=== PATIENT | female | born 1935 | race Caucasian/White ===

== ENCOUNTER 2020-08-30 06:28 | Observation (INO) | payer MEDICARE ==
[2020-08-25 11:54] LABS: BASOPHILS # (AUTO) 0.1 (0.0-0.1); BASOPHILS % 1.4 % (0.0-1.0); EOSINOPHILS # (AUTO) 0.1 (0.0-0.4); EOSINOPHILS % 1.1 % (0.0-6.0); HEMATOCRIT 33.4 % (34.2-44.1); HEMOGLOBIN 9.3 g/dL (12.0-16.0); LYMPHOCYTES # (AUTO) 2.3 (1.0-3.2); LYMPHOCYTES % 25.4 % (18.0-39.1); MEAN CORPUSCULAR HGB CONC 27.8 g/dL (31-35); MEAN CORPUSCULAR VOLUME 79.1 fL (81-99); MONOCYTES # (AUTO) 0.9 (0.2-0.8); NEUTROPHILS # (AUTO) 5.7 (2.1-6.9); NEUTROPHILS % 61.9 % (38.7-80.0); PLATELET COUNT 561 x10e3/uL (140-360); RED BLOOD COUNT 4.22 x10e6/uL (3.6-5.1); RED CELL DISTRIBUTION WIDTH 18.4 % (11.7-14.4)
[2020-08-25 12:21] LABS: ANION GAP 14.6 mmol/L (8-16); BLOOD UREA NITROGEN 17 mg/dL (7-26); BUN/CREATININE RATIO 24 (6-25); CALCIUM 9.4 mg/dL (8.4-10.2); CARBON DIOXIDE 27 mmol/L (22-29); CHLORIDE 103 mmol/L (98-107); CREATININE, SERUM 0.71 mg/dL (0.57-1.11); EST GLOMERULAR FILTRATION RATE > 60 ML/MIN (60-); GLUCOSE 108 mg/dL (74-118); POTASSIUM 3.6 mmol/L (3.5-5.1); SODIUM 141 mmol/L (136-145)
[~2020-08-30] VITALS: Ht 152.4 cm; Wt 65.3 kg
[~2020-08-30 06:28] MED LIST: ASPIRIN81 MG PO; ATORVASTATIN CA20 MG PO; LASIX40 MG PO; POTASSIUM CHLO10 ME1 PO; ULTRAM50 MG PO; VOLTAREN-XR100 MG PO
[2020-08-30] MEDS ORDERED: BUPIVACAINE 7.5MG/ML /DEXTROSE 82.5MG/ML 2 ML AMP INJ ONE (06:45)
[2020-08-30] MEDS ORDERED: SODIUM CHLORIDE 0.9% 500ML 500 ML ONE (06:52)
[2020-08-30] MEDS ORDERED: VANCOMYCIN HCL 1,000 MG ONE (06:53)
[2020-08-30] MEDS ORDERED: TRANEXAMIC ACID 1,000 MG/10 ML ML ONE (06:53)
[2020-08-30] MEDS ORDERED: GABAPENTIN 300 MG CAP ONE (07:28)
[2020-08-30] MEDS ORDERED: CELECOXIB 200 MG CAP ONE (07:28)
[2020-08-30] MEDS ORDERED: DEXAMETHASONE SOD PHOS 10 MG/1 ML VIAL ONE (07:28)
[2020-08-30] MEDS ORDERED: CEFAZOLIN SOD 1 GM/NS 50ML 100 ML IV ONE (07:28)
[2020-08-30] MEDS ORDERED: ROPIVACAINE 246.25 MG, EPINEPHRINE HCL 1:1000 1ML 0.5 MG, CLONIDINE HCL 0.08 MG, KETORO... INJ ONE ×5 (08:00)
[2020-08-30] MEDS ORDERED: HYDROCODONE/APAP 7.5MG-325MG 1 EA TAB PO PRN (09:30)
[2020-08-30] MEDS ORDERED: DOCUSATE SODIUM 100 MG CAP PO PRN (09:30)
[2020-08-30] MEDS ORDERED: ACETAMINOPHEN 650 MG SUPP PR PRN (09:30)
[2020-08-30] MEDS ORDERED: ONDANSETRON HCL INJ 2MG/ML 2ML 2 MG/ML VIAL IV PRN (09:30)
[2020-08-30] MEDS ORDERED: KETOROLAC TROMETHAMINE 30 MG/ML VIAL IV PRN (09:30)
[2020-08-30] MEDS ORDERED: DIPHENHYDRAMINE HCL INJ 50 MG/ML VIAL IV PRN (09:30)
[2020-08-30] MEDS ORDERED: SODIUM CHLORIDE 0.9% 1000ML 1,000 ML IV SCH (09:30)
[2020-08-30 10:52] VITALS: BP 143/53
[2020-08-30 10:59] VITALS: BP 143/53
[2020-08-30] MEDS ORDERED: ACETAMINOPHEN 1000 MG/100 ML IV PRN (12:00)
[2020-08-30] MEDS ORDERED: MIDAZOLAM HCL 2 MG/2 ML VIAL ONE (12:31)
[2020-08-30] MEDS ORDERED: FENTANYL CITRATE/PF 100MCG/2 ML INJ ONE (12:31)
[2020-08-30] MEDS ORDERED: PROPOFOL IV EMULSION 10 MG/ML 20 ML VIAL ONE (13:02)
[2020-08-30] MEDS ORDERED: LIDOCAINE HCL 2% LOCAL INJ 5 ML SDV VIAL INJ ONE (13:02)
[2020-08-30] MEDS: CEFAZOLIN SOD 1 GM/NS 50ML 50 ML IV SCH ×2 (14:00→21:00)
[2020-08-30 15:38] VITALS: BP 129/50
[2020-08-30] MEDS: HYDROCODONE/APAP 5MG-325MG TAB PO PRN (15:59)
[2020-08-30] MEDS ORDERED: DICLOFENAC SOD 50 MG TAB PO SCH (17:00)
[2020-08-30] MEDS: ASPIRIN 325 MG TAB PO SCH (17:03)
[2020-08-30] MEDS: CELECOXIB 200 MG CAP PO SCH (17:03)
[2020-08-30] MEDS: FUROSEMIDE 40 MG TAB PO SCH (17:03)
[2020-08-30 20:00] VITALS: BP 119/51
[2020-08-30] MEDS: TRAMADOL HCL 50 MG TAB PO SCH (21:00)
[2020-08-30] MEDS: ATORVASTATIN 20 MG TAB PO SCH (21:00)
[2020-08-30] MEDS: ZOLPIDEM TARTRATE 5 MG TAB PO PRN (23:49)
[2020-08-31] VITALS (8 sets, daily range): BP systolic 115–155; BP diastolic 49–100
[2020-08-31 05:28] LABS: HEMATOCRIT 27.1 % (34.2-44.1); HEMOGLOBIN 7.7 g/dL (12.0-16.0)
[2020-08-31] MEDS: CEFAZOLIN SOD 1 GM/NS 50ML 50 ML IV SCH (06:02)
[2020-08-31] MEDS: ASPIRIN 325 MG TAB PO SCH ×2 (07:58→17:36)
[2020-08-31] MEDS: CELECOXIB 200 MG CAP PO SCH ×2 (07:58→17:36)
[2020-08-31] MEDS: FUROSEMIDE 40 MG TAB PO SCH ×2 (08:01→17:36)
[2020-08-31] MEDS: POTASSIUM CHLORIDE 10MEQ EA PO SCH (08:01)
[2020-08-31] MEDS: IRON-VITAMIN-MINERAL CAPSULE PO SCH ×2 (09:23→17:36)
[2020-08-31] MEDS: HYDROCODONE/APAP 5MG-325MG TAB PO PRN (12:15)
[2020-08-31] MEDS ORDERED: ONDANSETRON HCL 4 MG ORAL DISINTEGRATING TAB PO PRN (14:00)
[2020-08-31] MEDS: ATORVASTATIN 20 MG TAB PO SCH (20:53)
[2020-08-31] MEDS: ZOLPIDEM TARTRATE 5 MG TAB PO PRN (20:55)
[2020-08-31] MEDS: TRAMADOL HCL 50 MG TAB PO SCH (20:55)
[2020-09-01] VITALS: BP 152/60
[2020-09-01] MEDS ORDERED: QUETIAPINE FUMARATE 25 MG TAB PO PRN ×2 (00:30→08:30)
[2020-09-01 04:00] VITALS: BP 144/42
[2020-09-01] MEDS ORDERED: KETOROLAC TROMETHAMINE 30 MG/ML VIAL IM PRN (04:15)
[2020-09-01] MEDS ORDERED: DIPHENHYDRAMINE HCL INJ 50 MG/ML VIAL IV PRN (04:15)
[2020-09-01] MEDS ORDERED: DIPHENHYDRAMINE HCL INJ 50 MG/ML VIAL ONE (04:19)
[2020-09-01 05:44] LABS: BASOPHILS # (AUTO) 0.1 (0.0-0.1); BASOPHILS % 0.7 % (0.0-1.0); EOSINOPHILS # (AUTO) 0.2 (0.0-0.4); EOSINOPHILS % 1.7 % (0.0-6.0); HEMATOCRIT 28.6 % (34.2-44.1); HEMOGLOBIN 8.3 g/dL (12.0-16.0); LYMPHOCYTES # (AUTO) 2.6 (1.0-3.2); LYMPHOCYTES % 21.4 % (18.0-39.1); MEAN CORPUSCULAR HEMOGLOBIN 22.6 pg (28-32); MEAN CORPUSCULAR VOLUME 77.7 fL (81-99); MONOCYTES % 8.3 % (4.4-11.3); NEUTROPHILS # (AUTO) 8.1 (2.1-6.9); NEUTROPHILS % 67.5 % (38.7-80.0); PLATELET COUNT 416 x10e3/uL (140-360); RED BLOOD COUNT 3.68 x10e6/uL (3.6-5.1); RED CELL DISTRIBUTION WIDTH 18.6 % (11.7-14.4)
[2020-09-01 06:14] LABS: ANION GAP 13.4 mmol/L (8-16); BLOOD UREA NITROGEN 26 mg/dL (7-26); BUN/CREATININE RATIO 38 (6-25); CALCIUM 8.5 mg/dL (8.4-10.2); CARBON DIOXIDE 27 mmol/L (22-29); CHLORIDE 104 mmol/L (98-107); CREATININE, SERUM 0.68 mg/dL (0.57-1.11); EST GLOMERULAR FILTRATION RATE > 60 ML/MIN (60-); GLUCOSE 101 mg/dL (74-118); POTASSIUM 3.4 mmol/L (3.5-5.1); SODIUM 141 mmol/L (136-145)
[2020-09-01 08:00] VITALS: BP 152/58
[2020-09-01] MEDS: CELECOXIB 200 MG CAP PO SCH (08:48)
[2020-09-01] MEDS: IRON-VITAMIN-MINERAL CAPSULE PO SCH (08:48)
[2020-09-01] MEDS: ASPIRIN 325 MG TAB PO SCH (08:48)
[2020-09-01] MEDS: POTASSIUM CHLORIDE 10MEQ EA PO SCH (08:49)
[2020-09-01] MEDS: FUROSEMIDE 40 MG TAB PO SCH (08:49)
[2020-09-01 08:56] VITALS: BP 152/58
[2020-09-01] MEDS ORDERED: POTASSIUM CHLORIDE 10MEQ EA PO ONE (09:00)
[2020-09-01] MEDS: HYDROCODONE/APAP 5MG-325MG TAB PO PRN (10:32)
[2020-09-01 10:51] VITALS: BP 152/58
[2020-09-01 11:38] VITALS: BP 152/65
[2020-09-02] MEDS ORDERED: POTASSIUM CHLORIDE 10MEQ EA PO SCH (09:00)
== END 2020-09-01 13:20 | disposition home health service (06) ==
LOC: OR 06:28 → PACU V 09:24 → MED/SURG 10:25
PROVIDERS: ADMIT Specialist; ATTEND Specialist
DX: M16.12 Unilateral primary osteoarthritis, left hip (principal); E11.9 Type 2 diabetes mellitus without complications; E78.00 Pure hypercholesterolemia, unspecified; Z96.641 Presence of right artificial hip joint; Z01.812 Encounter for preprocedural laboratory examination; Z20.822 Contact with and (suspected) exposure to COVID-19; D64.9 Anemia, unspecified; I10 Essential (primary) hypertension
CPT/HCPCS: 27130; 36415 ×3; 71046; 72170; 80048 ×2; 85014; 85018; 85025 ×2; 86850; 86900; 86920; 93005; 97110; 97116 ×3; 97161; 97530 ×2; G0378 ×3; J0171; J0690 ×2; J1100; J1200; J1885 ×2; J2001; J2250; J2704; J2795; J3010; J3370; J7040; U0002; C1713; C1776

== ENCOUNTER 2020-09-29 10:49 | Inpatient (IN) | payer MEDICARE, OTHER ==
[2020-09-26 17:24] LABS: BASOPHILS # (AUTO) 0.1 (0.0-0.1); BASOPHILS % 0.9 % (0.0-1.0); EOSINOPHILS # (AUTO) 0.2 (0.0-0.4); EOSINOPHILS % 1.3 % (0.0-6.0); HEMATOCRIT 31.9 % (34.2-44.1); HEMOGLOBIN 9.4 g/dL (12.0-16.0); LYMPHOCYTES # (AUTO) 2.2 (1.0-3.2); MEAN CORPUSCULAR HEMOGLOBIN 24.1 pg (28-32); MEAN CORPUSCULAR HGB CONC 29.5 g/dL (31-35); MEAN CORPUSCULAR VOLUME 81.8 fL (81-99); MONOCYTES # (AUTO) 1.1 (0.2-0.8); MONOCYTES % 9.3 % (4.4-11.3); NEUTROPHILS # (AUTO) 8.1 (2.1-6.9); NEUTROPHILS % 68.9 % (38.7-80.0); PLATELET COUNT 738 x10e3/uL (140-360); RED CELL DISTRIBUTION WIDTH 23.3 % (11.7-14.4)
[2020-09-26 17:43] LABS: ANION GAP 16.5 mmol/L (8-16); BLOOD UREA NITROGEN 23 mg/dL (7-26); BUN/CREATININE RATIO 40 (6-25); CALCIUM 9.2 mg/dL (8.4-10.2); CARBON DIOXIDE 23 mmol/L (22-29); CHLORIDE 105 mmol/L (98-107); CREATININE, SERUM 0.58 mg/dL (0.57-1.11); EST GLOMERULAR FILTRATION RATE > 60 ML/MIN (60-); GLUCOSE 122 mg/dL (74-118); POTASSIUM 4.5 mmol/L (3.5-5.1); SODIUM 140 mmol/L (136-145)
[2020-09-26 19:05] LABS: ANISOCYTOSIS SLIGHT; HYPOCHROMASIA SLIGHT; POIKILOCYTOSIS SLIGHT; TARGET CELLS FEW
[2020-09-26 19:07] LABS: PLATELET ESTIMATE MARKEDLY INCREASED
[2020-09-26 19:08] LABS: PLATELET MORPHOLOGY COMMENT FEW LARGE; SCHISTOCYTES RARE
[~2020-09-29] VITALS: Ht 154.9 cm; Wt 61.7 kg
[2020-09-29] VITALS (7 sets, daily range): BP systolic 119–151; BP diastolic 57–68
[~2020-09-29 10:49] MED LIST changes: +CALCIUM CARBON500 MG PO; +CLARITIN10 MG PO; +HEMOCYTE PLUS1 EACH PO; +MYRBETRIQ25 MG PO; +NEURONTIN300 MG PO; +PRAVACHOL20 MG PO; +ROPIVACAINE 246.25 MG, EPINEPHRINE HCL 1:1000 1ML 0.5 MG, CLONIDINE HCL 0.08 MG, KETORO... INJ ONE; +TYLENOL EXTRA500 MG PO; +VITAMIN D3250 MCG PO
[2020-09-29] MEDS ORDERED: TRANEXAMIC ACID 1,000 MG/10 ML ML ONE (10:56)
[2020-09-29] MEDS ORDERED: VANCOMYCIN HCL 1,000 MG ONE (10:56)
[2020-09-29] MEDS ORDERED: SODIUM CHLORIDE 0.9% 500ML 500 ML ONE (10:56)
[2020-09-29] MEDS ORDERED: CEFAZOLIN SOD 1 GM/NS 50ML 100 ML IV ONE (11:07)
[2020-09-29] MEDS ORDERED: VANCOMYCIN 1GM/NS 250 ML 250 ML ONE (11:07)
[2020-09-29] MEDS ORDERED: GLYCOPYRROLATE INJ 0.2 MG/ML VIAL ONE (12:03)
[2020-09-29] MEDS ORDERED: NEOSTIGMINE 1 MG/ML 10ML VIAL ONE (12:03)
[2020-09-29] MEDS ORDERED: PROPOFOL IV EMULSION 10 MG/ML 20 ML VIAL ONE (12:03)
[2020-09-29] MEDS ORDERED: ONDANSETRON HCL INJ 2MG/ML 2ML 2 MG/ML VIAL ONE (12:03)
[2020-09-29] MEDS ORDERED: POVIDONE IODINE 0.05% 0.05 % ML PO ONE (12:03)
[2020-09-29] MEDS ORDERED: ROCURONIUM BROMIDE 10 MG/ML 5ML VIAL IV ONE (12:03)
[2020-09-29] MEDS ORDERED: LIDOCAINE HCL 2% LOCAL INJ 5 ML SDV VIAL INJ ONE (12:03)
[2020-09-29] MEDS ORDERED: LIDOCAINE HCL 2% JELLY 5 ML TUBE ONE (12:03)
[2020-09-29] MEDS ORDERED: SEVOFLURANE INHAL SOLN 250 ML PEN BTL ONE (12:03)
[2020-09-29] MEDS ORDERED: HYDROGEN PEROXIDE 120 ML BTL ONE (12:11)
[2020-09-29] MEDS ORDERED: FENTANYL CITRATE/PF 100MCG/2 ML INJ ONE ×2 (12:56→14:51)
[2020-09-29] MEDS ORDERED: KETOROLAC TROMETHAMINE 30 MG/ML VIAL IV PRN (14:15)
[2020-09-29] MEDS ORDERED: HYDROCODONE/APAP 5MG-325MG TAB PO PRN (14:15)
[2020-09-29] MEDS ORDERED: DOCUSATE SODIUM 100 MG CAP PO PRN (14:15)
[2020-09-29] MEDS ORDERED: HYDROCODONE/APAP 7.5MG-325MG 1 EA TAB PO PRN (14:15)
[2020-09-29] MEDS ORDERED: ONDANSETRON HCL INJ 2MG/ML 2ML 2 MG/ML VIAL IV PRN (14:15)
[2020-09-29] MEDS ORDERED: ACETAMINOPHEN 650 MG SUPP PR PRN (14:15)
[2020-09-29] MEDS ORDERED: DIPHENHYDRAMINE HCL INJ 50 MG/ML VIAL IV PRN (14:15)
[2020-09-29] MEDS ORDERED: HYDROMORPHONE 1MG/1ML INJ ONE (15:05)
[2020-09-29] MEDS ORDERED: MORPHINE SULFATE INJ 4 MG/ML INJ 1ML ONE (15:31)
[2020-09-29] MEDS: SODIUM CHLORIDE 0.9% 1000ML 1,000 ML IV SCH (16:39)
[2020-09-29] MEDS: ASPIRIN 325 MG TAB PO SCH (16:49)
[2020-09-29] MEDS: CELECOXIB 100 MG CAP PO SCH (16:49)
[2020-09-29] MEDS ORDERED: ACETAMINOPHEN 1000 MG/100 ML IV PRN (17:00)
[2020-09-29] MEDS: CEFEPIME 2 GM/NS 0.9% 100 ML 100 ML IV SCH (19:57)
[2020-09-29] MEDS: ZOLPIDEM TARTRATE 5 MG TAB PO PRN (21:53)
[2020-09-30] VITALS (10 sets, daily range): BP systolic 129–156; BP diastolic 50–98
[2020-09-30] MEDS: VANCOMYCIN 1GM/NS 250 ML 250 ML IV SCH ×2 (00:29→12:46)
[2020-09-30] MEDS: TRAMADOL HCL 50 MG TAB PO PRN ×2 (01:45→22:23)
[2020-09-30] MEDS: SODIUM CHLORIDE 0.9% 1000ML 1,000 ML IV SCH (03:37)
[2020-09-30 05:11] LABS: BASOPHILS # (AUTO) 0.1 (0.0-0.1); BASOPHILS % 0.5 % (0.0-1.0); EOSINOPHILS # (AUTO) 0.1 (0.0-0.4); EOSINOPHILS % 0.7 % (0.0-6.0); LYMPHOCYTES # (AUTO) 2.3 (1.0-3.2); LYMPHOCYTES % 19.7 % (18.0-39.1); MEAN CORPUSCULAR HEMOGLOBIN 23.2 pg (28-32); MEAN CORPUSCULAR HGB CONC 28.1 g/dL (31-35); MEAN CORPUSCULAR VOLUME 82.5 fL (81-99); MONOCYTES # (AUTO) 0.8 (0.2-0.8); MONOCYTES % 7.2 % (4.4-11.3); NEUTROPHILS # (AUTO) 8.2 (2.1-6.9); NEUTROPHILS % 70.5 % (38.7-80.0); PLATELET COUNT 657 x10e3/uL (140-360); RED BLOOD COUNT 2.63 x10e6/uL (3.6-5.1); RED CELL DISTRIBUTION WIDTH 22.8 % (11.7-14.4)
[2020-09-30 05:14] LABS: HEMATOCRIT 21.7 % (34.2-44.1); HEMOGLOBIN 6.1 g/dL (12.0-16.0)
[2020-09-30 05:58] LABS: HEMATOCRIT 22.9 % (34.2-44.1)
[2020-09-30 05:59] LABS: HEMOGLOBIN 6.7 g/dL (12.0-16.0)
[2020-09-30] MEDS: CEFEPIME 2 GM/NS 0.9% 100 ML 100 ML IV SCH ×2 (06:01→17:25)
[2020-09-30] MEDS ORDERED: FUROSEMIDE INJ 10 MG/ML 2 ML VIAL IV PRN (06:15)
[2020-09-30] MEDS ORDERED: SODIUM CHLORIDE 0.9% 250ML 250 ML IV ONE (06:15)
[2020-09-30] MEDS ORDERED: SODIUM CHLORIDE 0.9% 250ML 250 ML ONE (07:25)
[2020-09-30] MEDS: ASPIRIN 325 MG TAB PO SCH ×2 (07:56→17:25)
[2020-09-30] MEDS: CELECOXIB 100 MG CAP PO SCH ×2 (07:56→17:25)
[2020-09-30 08:39] LABS: HYPOCHROMASIA MODERATE; MICROCYTOSIS MODERATE; PLATELET ESTIMATE SLIGHTLY INCREASED; PLATELET MORPHOLOGY COMMENT NORMAL; POLYCHROMASIA FEW; RBC MORPHOLOGY COMMENT ABNORMAL
[2020-09-30 08:40] LABS: ANISOCYTOSIS MODERATE
[2020-09-30] MEDS: KETOROLAC TROMETHAMINE 30 MG/ML VIAL IV PRN ×2 (15:10→23:52)
[2020-09-30] MEDS: ZOLPIDEM TARTRATE 5 MG TAB PO PRN (20:15)
[2020-10-01] VITALS (8 sets, daily range): BP systolic 137–167; BP diastolic 54–69
[2020-10-01] MEDS: CEFEPIME 2 GM/NS 0.9% 100 ML 100 ML IV SCH (05:43)
[2020-10-01 05:47] LABS: BASOPHILS # (AUTO) 0.1 (0.0-0.1); BASOPHILS % 0.6 % (0.0-1.0); EOSINOPHILS # (AUTO) 0.2 (0.0-0.4); HEMATOCRIT 28.9 % (34.2-44.1); LYMPHOCYTES # (AUTO) 1.9 (1.0-3.2); LYMPHOCYTES % 16.2 % (18.0-39.1); MEAN CORPUSCULAR HEMOGLOBIN 25.8 pg (28-32); MEAN CORPUSCULAR HGB CONC 31.1 g/dL (31-35); MEAN CORPUSCULAR VOLUME 82.8 fL (81-99); MONOCYTES # (AUTO) 0.9 (0.2-0.8); MONOCYTES % 7.7 % (4.4-11.3); NEUTROPHILS # (AUTO) 8.5 (2.1-6.9); NEUTROPHILS % 72.3 % (38.7-80.0); PLATELET COUNT 551 x10e3/uL (140-360); RED BLOOD COUNT 3.49 x10e6/uL (3.6-5.1); RED CELL DISTRIBUTION WIDTH 20.3 % (11.7-14.4)
[2020-10-01 06:17] LABS: ANION GAP 10.8 mmol/L (8-16); BLOOD UREA NITROGEN 11 mg/dL (7-26); BUN/CREATININE RATIO 21 (6-25); CALCIUM 8.1 mg/dL (8.4-10.2); CARBON DIOXIDE 22 mmol/L (22-29); CHLORIDE 112 mmol/L (98-107); CREATININE, SERUM 0.52 mg/dL (0.57-1.11); EST GLOMERULAR FILTRATION RATE > 60 ML/MIN (60-); GLUCOSE 93 mg/dL (74-118); POTASSIUM 3.8 mmol/L (3.5-5.1); SODIUM 141 mmol/L (136-145)
[2020-10-01] MEDS: ASPIRIN 325 MG TAB PO SCH ×2 (08:19→17:00)
[2020-10-01] MEDS: CELECOXIB 100 MG CAP PO SCH ×2 (08:19→17:00)
[2020-10-01] MEDS: TRAMADOL HCL 50 MG TAB PO PRN ×2 (08:20→17:01)
[2020-10-01] MEDS ORDERED: HYDRALAZINE HCL 25 MG TAB PO PRN (08:45)
[2020-10-01] MEDS: METOPROLOL TARTRATE 25 MG TAB PO SCH ×2 (12:20→17:00)
[2020-10-01] MEDS: VANCOMYCIN 1GM/NS 250 ML 250 ML IV SCH ×2 (12:29→21:35)
[2020-10-01] MEDS: KETOROLAC TROMETHAMINE 30 MG/ML VIAL IV PRN (14:14)
[2020-10-02] VITALS (7 sets, daily range): BP systolic 132–161; BP diastolic 54–65
[2020-10-02] MEDS: KETOROLAC TROMETHAMINE 30 MG/ML VIAL IV PRN (01:02)
[2020-10-02] MEDS: ZOLPIDEM TARTRATE 5 MG TAB PO PRN ×2 (01:02→20:29)
[2020-10-02 05:51] LABS: BASOPHILS # (AUTO) 0.1 (0.0-0.1); BASOPHILS % 0.7 % (0.0-1.0); EOSINOPHILS # (AUTO) 0.3 (0.0-0.4); EOSINOPHILS % 2.8 % (0.0-6.0); HEMATOCRIT 29.1 % (34.2-44.1); HEMOGLOBIN 8.8 g/dL (12.0-16.0); LYMPHOCYTES % 17.1 % (18.0-39.1); MEAN CORPUSCULAR HEMOGLOBIN 25.6 pg (28-32); MEAN CORPUSCULAR HGB CONC 30.2 g/dL (31-35); MEAN CORPUSCULAR VOLUME 84.6 fL (81-99); MONOCYTES % 8.4 % (4.4-11.3); NEUTROPHILS % 69.9 % (38.7-80.0); PLATELET COUNT 498 x10e3/uL (140-360); RED BLOOD COUNT 3.44 x10e6/uL (3.6-5.1)
[2020-10-02] MEDS: CELECOXIB 100 MG CAP PO SCH ×2 (09:03→17:00)
[2020-10-02] MEDS: ASPIRIN 325 MG TAB PO SCH ×2 (09:03→17:00)
[2020-10-02] MEDS: METOPROLOL TARTRATE 25 MG TAB PO SCH ×2 (09:05→17:00)
[2020-10-02] MEDS: OMEPRAZOLE 20 MG CAP PO SCH ×2 (09:30→17:00)
[2020-10-02] MEDS ORDERED: CYANOCOBALAMIN INJ 1,000 MCG/ML VIAL IM ONE (09:30)
[2020-10-02] MEDS: IRON-VITAMIN-MINERAL CAPSULE PO SCH ×2 (10:30→17:00)
[2020-10-02] MEDS: SENNOSIDES 8.6 MG TAB PO SCH ×2 (10:30→17:00)
[2020-10-02] MEDS: FOLIC ACID 1 MG TAB PO SCH (10:30)
[2020-10-02] MEDS: VANCOMYCIN 1GM/NS 250 ML 250 ML IV SCH (10:30)
[2020-10-02] MEDS: CEFAZOLIN SOD 1 GM/NS 50ML 50 ML IV SCH ×2 (14:00→21:45)
[2020-10-03] VITALS (7 sets, daily range): BP systolic 140–193; BP diastolic 57–70
[2020-10-03] MEDS: CEFAZOLIN SOD 1 GM/NS 50ML 50 ML IV SCH ×3 (05:39→21:49)
[2020-10-03] MEDS ORDERED: ONDANSETRON HCL 4 MG ORAL DISINTEGRATING TAB PO PRN (07:15)
[2020-10-03] MEDS: IRON-VITAMIN-MINERAL CAPSULE PO SCH ×2 (08:48→17:38)
[2020-10-03] MEDS: METOPROLOL TARTRATE 25 MG TAB PO SCH ×2 (08:48→17:38)
[2020-10-03] MEDS: CELECOXIB 100 MG CAP PO SCH ×2 (08:48→17:38)
[2020-10-03] MEDS: ASPIRIN 325 MG TAB PO SCH ×2 (08:48→17:38)
[2020-10-03] MEDS: FOLIC ACID 1 MG TAB PO SCH (08:48)
[2020-10-03] MEDS: OMEPRAZOLE 20 MG CAP PO SCH ×2 (08:49→17:38)
[2020-10-03] MEDS: SENNOSIDES 8.6 MG TAB PO SCH ×2 (08:49→17:00)
[2020-10-03] MEDS: ZOLPIDEM TARTRATE 5 MG TAB PO PRN (21:49)
[2020-10-03] MEDS ORDERED: SODIUM CHLORIDE 0.9% 250ML 250 ML ONE (21:54)
[2020-10-04] VITALS (7 sets, daily range): BP systolic 145–176; BP diastolic 53–65
[2020-10-04] MEDS: CEFAZOLIN SOD 1 GM/NS 50ML 50 ML IV SCH ×3 (06:50→22:00)
[2020-10-04] MEDS: SENNOSIDES 8.6 MG TAB PO SCH ×2 (08:38→17:00)
[2020-10-04] MEDS: OMEPRAZOLE 20 MG CAP PO SCH ×2 (08:40→17:10)
[2020-10-04] MEDS: ASPIRIN 325 MG TAB PO SCH ×2 (08:40→17:10)
[2020-10-04] MEDS: IRON-VITAMIN-MINERAL CAPSULE PO SCH ×2 (08:40→17:10)
[2020-10-04] MEDS: METOPROLOL TARTRATE 25 MG TAB PO SCH ×2 (08:40→17:11)
[2020-10-04] MEDS: CELECOXIB 100 MG CAP PO SCH ×2 (08:40→17:10)
[2020-10-04] MEDS: FOLIC ACID 1 MG TAB PO SCH (08:40)
[2020-10-04] MEDS: ZOLPIDEM TARTRATE 5 MG TAB PO PRN (21:52)
[2020-10-04] MEDS: TRAMADOL HCL 50 MG TAB PO PRN (23:44)
[2020-10-05] VITALS (8 sets, daily range): BP systolic 155–177; BP diastolic 51–67
[2020-10-05] MEDS: CEFAZOLIN SOD 1 GM/NS 50ML 50 ML IV SCH ×3 (06:05→21:08)
[2020-10-05 06:26] LABS: BASOPHILS # (AUTO) 0.1 (0.0-0.1); EOSINOPHILS # (AUTO) 0.3 (0.0-0.4); EOSINOPHILS % 2.8 % (0.0-6.0); HEMATOCRIT 29.7 % (34.2-44.1); HEMOGLOBIN 8.9 g/dL (12.0-16.0); LYMPHOCYTES # (AUTO) 2.7 (1.0-3.2); LYMPHOCYTES % 25.3 % (18.0-39.1); MEAN CORPUSCULAR HEMOGLOBIN 25.7 pg (28-32); MEAN CORPUSCULAR VOLUME 85.8 fL (81-99); MONOCYTES % 9.4 % (4.4-11.3); NEUTROPHILS # (AUTO) 6.5 (2.1-6.9); NEUTROPHILS % 60.9 % (38.7-80.0); PLATELET COUNT 598 x10e3/uL (140-360); RED BLOOD COUNT 3.46 x10e6/uL (3.6-5.1); RED CELL DISTRIBUTION WIDTH 21.2 % (11.7-14.4)
[2020-10-05 06:54] LABS: ANION GAP 11.6 mmol/L (8-16); BLOOD UREA NITROGEN 13 mg/dL (7-26); BUN/CREATININE RATIO 25 (6-25); CALCIUM 8.1 mg/dL (8.4-10.2); CARBON DIOXIDE 26 mmol/L (22-29); CHLORIDE 108 mmol/L (98-107); CREATININE, SERUM 0.51 mg/dL (0.57-1.11); EST GLOMERULAR FILTRATION RATE > 60 ML/MIN (60-); GLUCOSE 90 mg/dL (74-118); POTASSIUM 3.6 mmol/L (3.5-5.1); SODIUM 142 mmol/L (136-145)
[2020-10-05] MEDS ORDERED: HYDRALAZINE HCL 25 MG TAB PO PRN (08:15)
[2020-10-05] MEDS: SENNOSIDES 8.6 MG TAB PO SCH ×2 (09:00→17:00)
[2020-10-05] MEDS: GABAPENTIN 100 MG CAP PO SCH ×2 (09:50→15:00)
[2020-10-05] MEDS: OMEPRAZOLE 20 MG CAP PO SCH ×2 (09:50→17:00)
[2020-10-05] MEDS: IRON-VITAMIN-MINERAL CAPSULE PO SCH ×2 (09:50→17:00)
[2020-10-05] MEDS: FUROSEMIDE 20 MG TAB PO SCH (09:50)
[2020-10-05] MEDS: CELECOXIB 100 MG CAP PO SCH ×2 (09:50→17:00)
[2020-10-05] MEDS: LORATADINE 10 MG TAB PO SCH (09:50)
[2020-10-05] MEDS: POTASSIUM CHLORIDE 10MEQ EA PO SCH ×2 (09:50→17:00)
[2020-10-05] MEDS: FOLIC ACID 1 MG TAB PO SCH (09:50)
[2020-10-05] MEDS: METOPROLOL TARTRATE 25 MG TAB PO SCH ×2 (09:50→17:00)
[2020-10-05] MEDS: ASPIRIN 325 MG TAB PO SCH ×2 (09:50→17:00)
[2020-10-05] MEDS ORDERED: SENNOSIDES 8.6 MG TAB PO PRN (18:15)
[2020-10-05] MEDS: GABAPENTIN 300 MG CAP PO SCH (20:39)
[2020-10-05] MEDS: SIMVASTATIN 20 MG TAB PO SCH (20:39)
[2020-10-05] MEDS: TRAMADOL HCL 50 MG TAB PO PRN (20:40)
[2020-10-05] MEDS ORDERED: ZOLPIDEM TARTRATE 5 MG TAB PO PRN (21:00)
[2020-10-06] VITALS (8 sets, daily range): BP systolic 147–179; BP diastolic 59–96
[2020-10-06] MEDS: TRAMADOL HCL 50 MG TAB PO PRN (04:48)
[2020-10-06] MEDS ORDERED: SODIUM CHLORIDE 0.9% 250ML 250 ML ONE (05:20)
[2020-10-06] MEDS: CEFAZOLIN SOD 1 GM/NS 50ML 50 ML IV SCH ×3 (05:58→21:40)
[2020-10-06] MEDS: IRON-VITAMIN-MINERAL CAPSULE PO SCH ×2 (09:41→17:02)
[2020-10-06] MEDS: OMEPRAZOLE 20 MG CAP PO SCH ×2 (09:41→17:03)
[2020-10-06] MEDS: POTASSIUM CHLORIDE 10MEQ EA PO SCH ×2 (09:41→17:02)
[2020-10-06] MEDS: LORATADINE 10 MG TAB PO SCH (09:41)
[2020-10-06] MEDS: CELECOXIB 100 MG CAP PO SCH ×2 (09:41→17:02)
[2020-10-06] MEDS: ASPIRIN 325 MG TAB PO SCH ×2 (09:41→17:02)
[2020-10-06] MEDS: FUROSEMIDE 20 MG TAB PO SCH (09:41)
[2020-10-06] MEDS: FOLIC ACID 1 MG TAB PO SCH (09:41)
[2020-10-06] MEDS: METOPROLOL TARTRATE 25 MG TAB PO SCH (17:03)
[2020-10-06] MEDS ORDERED: TRAMADOL HCL 50 MG TAB PO PRN (21:15)
[2020-10-06] MEDS: SIMVASTATIN 20 MG TAB PO SCH (21:40)
[2020-10-06] MEDS: GABAPENTIN 300 MG CAP PO SCH (21:40)
[2020-10-07] VITALS: BP 132/57
[2020-10-07 04:00] VITALS: BP 166/72
[2020-10-07] MEDS: CEFAZOLIN SOD 1 GM/NS 50ML 50 ML IV SCH ×2 (05:40→14:52)
[2020-10-07 08:00] VITALS: BP 152/67
[2020-10-07 08:28] VITALS: BP 152/67
[2020-10-07] MEDS: OMEPRAZOLE 20 MG CAP PO SCH (08:55)
[2020-10-07] MEDS: POTASSIUM CHLORIDE 10MEQ EA PO SCH (08:55)
[2020-10-07] MEDS: LORATADINE 10 MG TAB PO SCH (08:55)
[2020-10-07] MEDS: METOPROLOL TARTRATE 25 MG TAB PO SCH (08:55)
[2020-10-07] MEDS: FOLIC ACID 1 MG TAB PO SCH (08:55)
[2020-10-07] MEDS: CELECOXIB 100 MG CAP PO SCH (08:55)
[2020-10-07] MEDS: FUROSEMIDE 20 MG TAB PO SCH (08:55)
[2020-10-07] MEDS: ASPIRIN 325 MG TAB PO SCH (08:55)
[2020-10-07] MEDS: IRON-VITAMIN-MINERAL CAPSULE PO SCH (08:55)
[2020-10-07] MEDS: AMLODIPINE BESYLATE 5 MG TAB PO SCH ×2 (08:58→10:06)
[2020-10-07 11:26] VITALS: BP 126/61
[2020-10-07 15:58] VITALS: BP 136/82
== END 2020-10-07 17:25 | DRG 467 ==
LOC: OR 10:49 → MERGE 13:30 → PACU V 14:47 → MED/SURG 15:25
PROVIDERS: ADMIT Specialist; ATTEND Specialist
PROC: 0SPB0JZ Removal of Synthetic Substitute from Left Hip Joint, Open Approach (ICD-10-PCS; 2020-09-29)
PROC: 0SRB029 Replacement of Left Hip Joint with Metal on Polyethylene Synthetic Substitute, Cemented, Open Approach (ICD-10-PCS; principal; 2020-09-29 12:31)
PROC: 30233N1 Transfusion of Nonautologous Red Blood Cells into Peripheral Vein, Percutaneous Approach (ICD-10-PCS; 2020-09-30)
DX: T84.52XA Infection and inflammatory reaction due to internal left hip prosthesis, initial encounter (principal); T81.41XA Infection following a procedure, superficial incisional surgical site, initial encounter; D62 Acute posthemorrhagic anemia; M86.9 Osteomyelitis, unspecified; Z20.822 Contact with and (suspected) exposure to COVID-19; M16.12 Unilateral primary osteoarthritis, left hip; F03.90 Unspecified dementia, unspecified severity, without behavioral disturbance, psychotic disturbance, mood disturbance, and anxiety; B95.61 Methicillin susceptible Staphylococcus aureus infection as the cause of diseases classified elsewhere; E11.69 Type 2 diabetes mellitus with other specified complication; K59.00 Constipation, unspecified
CPT/HCPCS: 36415; 36569; 71045; 72170; 80048; 85014; 85018; 85025; 86850; 86900; 86920; 87071; 87075; 87186; 87205; 87902; 96360; 97139; C1713; C1776; J0171; J0690; J1170; J1200; J1885; J2001; J2270; J2405; J2710; J2795; J3010; J3370; J3420; J7030; J7040; J7050; P9016; U0002